=== PATIENT | female | born 1955 | race Caucasian/White ===

== ENCOUNTER 2019-05-05 22:14 | Inpatient (IN) | payer MEDICAID ==
[~2019-05-05] VITALS: Ht 180.3 cm; Wt 129.3 kg
[~2019-05-05 22:14] MED LIST: DEPAKENE250 MG PO; GLUCOPHAGE XR500 M1 PO; LEXAPRO20 MG PO; PRILOSEC 20 MG20 MG PO; REQUIP XL2 MG PO; SYNTHROID200 MCG PO
[2019-05-05 22:16] VITALS: BP 117/65
[2019-05-05] MEDS ORDERED: ACETAMINOPHEN PO ×2 (22:31→22:33)
[2019-05-05] MEDS ORDERED: REPLESTA50000 UNIT PO (22:34)
[2019-05-05] MEDS ORDERED: DRIZALMA SPRINK60 MG PO (22:34)
[2019-05-05] MEDS ORDERED: DEPAKOTE250 MG PO (22:34)
[2019-05-05] MEDS ORDERED: NEURONTIN300 MG PO (22:35)
[2019-05-05] MEDS ORDERED: GVOKE SYRI1 MG/0.2 M SUBQ (22:36)
[2019-05-05] MEDS ORDERED: GLYBURIDE 5 MG T5 M1 PO (22:37)
[2019-05-05] MEDS ORDERED: IBU400 MG PO (22:38)
[2019-05-05] MEDS ORDERED: HUMALOG100 UNIT/1 SUBQ (22:40)
[2019-05-05] MEDS ORDERED: LANTUS SUBQ (22:41)
[2019-05-05] MEDS ORDERED: LEVO-T100 MCG PO (22:42)
[2019-05-05] MEDS ORDERED: LOPERAMIDE2 MG PO (22:42)
[2019-05-05] MEDS ORDERED: MELOXICAM15 MG PO (22:43)
[2019-05-05] MEDS ORDERED: TAMIFLU75 MG PO (22:45)
[2019-05-05] MEDS ORDERED: OXYBUTYNIN 5 MG5 M2 PO (22:45)
[2019-05-05] MEDS ORDERED: FLOMAX0.4 MG PO (22:46)
[2019-05-05] MEDS ORDERED: TRAMADOL 50 MG50 MG PO (22:47)
[2019-05-05 22:55] LABS: ABSOLUTE BASOPHILS 0.1 thou/uL (0.0-0.2); ABSOLUTE EOSINOPHILS 0.2 thou/uL (0.0-0.7); ABSOLUTE LYMPHOCYTES 3.1 thou/uL (0.8-5.3); ABSOLUTE MONOCYTES 0.9 thou/uL (0.0-1.2); ABSOLUTE NEUTROPHILS 3.8 thou/uL (1.6-8.1); BASOPHILS 0.6 %; EOSINOPHILS 2.7 %; HEMATOCRIT 33.9 % (37.0-47.0); HEMOGLOBIN 11.2 gm/dL (12.0-15.0); LYMPHOCYTES 38.9 %; MCH 28.6 pg (26.0-34.0); MCV 86.6 fL (80.0-100.0); MONOCYTES 10.6 %; MPV 7.9 fl. (7.2-11.1); NUCLEATED RBCS 0 /100WBC; PLATELET COUNT* 317 thou/uL (150-400); POLYS 47.2 %; RBC 3.92 mil/uL (4.20-5.00); RDW-CV 16.1 % (10.5-14.5); WBC 8.1 thou/uL (4.0-11.0)
[2019-05-05 23:00] LABS: CALCIUM 8.3 mg/dL (8.5-10.1); CREATININE 1.3 mg/dL (0.6-1.3)
[2019-05-05 23:03] LABS: PROTIME 10.4 Seconds (9.20-11.50)
[2019-05-05 23:11] LABS: ALBUMIN 2.6 g/dL (3.4-5.0); TOTAL BILIRUBIN 0.2 mg/dL (<0.1-1.0); TOTAL PROTEIN 6.5 g/dL (6.4-8.2)
[2019-05-06 00:39] LABS: URINE BILIRUBIN NEGATIVE (Negative); URINE BLOOD 3+ (Negative); URINE CLARITY CLOUDY; URINE COLOR YELLOW; URINE GLUCOSE-RANDOM NEGATIVE (Negative); URINE KETONES NEGATIVE (Negative); URINE PROTEIN 1+ (Negative); URINE SPECIFIC GRAVITY 1.025 (1.005-1.030); URINE UROBILINOGEN 0.2 E.U./dl (0.2-1.0)
[2019-05-06 00:42] LABS: URINE LEUKOCYTES-REFLEX 2+ (Negative); URINE NITRITE-REFLEX POSITIVE (Negative)
[2019-05-06 01:11] LABS: CASTS None Seen /LPF (None Seen); SQUAMOUS NONE SEEN /LPF (0-3); URINE WBC-REFLEX >25 Many /HPF (0-5)
[2019-05-06 01:13] LABS: BACTERIA-REFLEX >30 Many /HPF (None Seen); CRYSTALS None Seen /LPF (None Seen)
[2019-05-06 07:43] VITALS: BP 118/52
--- NOTE | 2019-05-06 10:46 | EKG ---
[place] [address] ELECTROCARDIOGRAM REPORT Name: NISHA LAGUNAS Room: [place] [address] ADM IN [facility].#: [id number] Admission: 05/06/19 Attend Phys: Wendy Gillis, Discharge: Date of : 53 Date of Service: 05/05/192220 Report #: [id number] THIS REPORT FOR: //name// [facility] ED Test Date: 2019-05-05 Test Time: 22:21:12 Pat Name: NISHA LAGUNAS Department: Room: [facility] Gender: F Drink Waiter: LUI : 1955 Requested By: Ifrah Loredo Order Number: [id number] MD: Bolivar Trinidad Measurements Intervals [place] Rate: 75 P: 76 KS: 183 QRS: -38 QRSD: 137 T: 39 QT: 408 QTc: 456 Interpretive Statements Sinus rhythm Right bundle branch block left anterior fasicular block No previous ECG available for comparison Electronically Signed On 05-06-2019 10:45:16 ADDICTION PROFESSIONAL by Bolivar Trinidad [email or web address] <ELECTRONICALLY SIGNED> By: Bolivar Trinidad MD, [facility] 05/06/19 1045 20 20 Bolivar Trinidad MD, [facility] /EPI
[2019-05-06 11:12] VITALS: BP 100/47
[2019-05-06 15:03] VITALS: BP 100/47
--- NOTE | 2019-05-06 15:16 | CON ---
[address] [address] CONSULTATION Name: NISHA LAGUNAS Room: [place] [address] ADM IN .R.#: [id number] Admission: 05/06/19 Attend Phys: Wendy Gillis MD Discharge: Date of : 53 Report #: [id number] THIS REPORT FOR: //name// cc: LORENA Tinsley family physician/PCP LORENA Tinsley family physician/PCP ~ THIS REPORT FOR: //name// CC: LORENA physician/PCP Wendy Gillis DATE OF SERVICE: 05/06/2019 CARDIOLOGY CONSULTATION HISTORY OF PRESENT ILLNESS: The patient is a 64-year-old single white female who I was asked to see in the Emergency Room today after she complained of chest pain. The history is obtained from the patient. There are no old records or family members available. The patient has been in a fci for 4 years because of frequent falls. She uses a walker. She is also overweight, being 5 feet 10 inches, 260 pounds. She was doing well until yesterday, she noticed a sharp pain in her chest, went down her left arm. It tended to come and go. She has been coughing for 2 weeks. She denied any associated nausea, diaphoresis. She has had no increased shortness of breath, peripheral edema. Denied any palpitation or syncope. She came to the Emergency Room yesterday and was admitted for further evaluation and treatment. PAST MEDICAL HISTORY: She has had cholecystectomy, hiatal hernia repair, hysterectomy, knee surgery, both hips replaced. She has a history of diabetes. MEDICATIONS: At the fci consist of the following: She is on insulin, metformin, oxybutynin for incontinence. ALLERGIES: SHE HAS AN ALLERGY TO SULFA DRUGS. FAMILY HISTORY: Her sister had a heart attack. SOCIAL HISTORY: , lives in a fci. She used to work as a JUNIOR MARKETING ASSOCIATE. No smoking or alcohol abuse. REVIEW OF SYSTEMS: No history of stroke, asthma, GI bleeding, liver disease. She has had kidney stones. No cancer. She has a history of depression, saw a psychiatrist. PHYSICAL EXAMINATION: GENERAL: Revealed a large middle-aged female lying in bed. [place] [address] CONSULTATION Name: NISHA LAGUNAS Room: [address] IN [facility]#: [id number] Admission: 05/06/19 Attend Phys: Wendy Gillis MD Discharge: Date of : 53 Report #: [id number] VITAL SIGNS: She had a blood pressure of 120/60, pulse 70. She is afebrile. HEENT: She was anicteric. Conjunctivae pink. Mucous membranes are moist. NECK: Veins are nondistended. CHEST: Clear to auscultation. CARDIOVASCULAR: Regular rate and rhythm, no rub or murmur. ABDOMEN: Obese. EXTREMITIES: Had no pitting edema. SKIN: Warm and dry. NEUROLOGIC: Nonfocal. Her workup so far in the Emergency Room last night included an ECG that showed a sinus rhythm, left axis deviation and a right bundle branch block. Her x-rays; she had a portable chest x-ray that showed normal heart size, clear lung keating. CT scan of the chest using a PE protocol showed no evidence of aortic dissection, no pulmonary embolus, mild atelectasis, previous hiatal hernia surgery. LABORATORY DATA: Sodium 145, BUN 20, creatinine 1.3. Liver function studies were normal. Troponins all 0.06. BNP 109. White blood cell count 8.1, hemoglobin 11.2. IMPRESSION AND RECOMMENDATIONS: 1. Chest pain. Suspect pleuritic from her bronchitis. Recommend no further cardiac evaluation. 2. Diabetes. 3. Obesity. 4. Incontinence. 5. History of frequent falls. <ELECTRONICALLY SIGNED> By: Bolivar Trinidad MD, [facility] 05/06/19 1516 1000 [id number] Trinidad MD, FACC /nt
[2019-05-06 15:58] VITALS: BP 112/59
--- NOTE | 2019-05-06 17:17 | 2DMMODE ---
[place] [address] 2 D/M-MODE ECHOCARDIOGRAM Name: NISHA LAGUNAS Room: [address] ADM IN [facility].#: [id number] Admission: 05/06/19 Attend Phys: Wendy Gillis, Discharge: Date of : 53 Date of Service: 05/06/19 1716 Report #: [id number] THIS REPORT FOR: cc: FAM - No family physician/PCP FAM - No family physician/PCP Bolivar Trinidad MD [facility] ~ APPROVED REPORT Study performed: 05/06/2019 15:19:51 EXAM: Comprehensive 2D, Doppler, and color-flow Echocardiogram Patient Location: In-Patient Room #: [facility] BSA: 2.43 HR: 99 bpm BP: 100/47 mmHg Other Information Study Quality: Fair Technically limited study due to inability to position patient. Indications Chest Pain 2D Dimensions IVSd: 12.62 (7-11mm) LVOT Diam: 20.36 (18-24mm) LVDd: 39.09 mm PWd: 12.24 (7-11mm) Ascending Ao: 30.81 (22-36mm) LVDs: 28.49 (25-40mm) Aortic Root: 24.21 mm Volumes Left Atrial Volume (Systole) LA ESV Index: 12.00 mL/m2 Aortic Valve AoV Peak Walter.: 0.92 m/s AO Peak Gr.: 3.36 mmHg LVOT Max P.54 mmHg AO Mean Gr.: 2.06 mmHg LVOT Mean P.20 mmHg LVOT Max V: 0.80 m/s AO V2 VTI: 16.07 cm LVOT Mean V: 0.50 m/s AKBAR (VTI): 3.02 cm2 LVOT V1 VTI: 14.93 [place] [address] 2 D/M-MODE ECHOCARDIOGRAM Name: NISHA LAGUNAS Room: [address] IN .R.#: [id number] Admission: 05/06/19 Attend Phys: Wendy Gillis, Discharge: Date of : 53 Date of Service: 05/06/19 1716 Report #: [id number] Mitral Valve E/A Ratio: 0.65 MV Decel. Time: 155.40 ms MV E Max Walter.: 0.55 m/s MV PHT: 45.06 ms MVA (PHT): 4.88 cm2 TDI E/Lateral E': 6.88 E/Medial E': 5.00 Medial E' Walter.: 0.11 m/s Lateral E' Walter.: 0.08 m/s Pulmonary Valve PV Peak Walter.: 0.85 m/s PV Peak Gr.: 2.91 mmHg Left Ventricle The left ventricle is normal size. There is normal LV segmental wall motion. Mild concentric left ventricular hypertrophy. Left ventricular systolic function is normal. The left ventricular ejection fraction is within the normal range. LVEF is 55-60%. Grade I - abnormal relaxation pattern. Right Ventricle The right ventricle is normal size. The right ventricular systolic function is normal. Atria The left atrium size is normal. The right atrium size is normal. Aortic Valve The Aortic valve is sclerotic. No aortic regurgitation is present. There is no aortic valvular stenosis. Mitral Valve The mitral valve is normal in structure. There is no mitral valve regurgitation noted. No evidence of mitral valve stenosis. Tricuspid Valve Tricuspid valve is not well visualized. There is no tricuspid valve regurgitation noted. Pulmonic Valve Pulmonic valve is not well visualized. There is no pulmonic [place] [address] 2 D/M-MODE ECHOCARDIOGRAM Name: NISHA LAGUNAS Room: [address] IN [facility]#: [id number] Admission: 05/06/19 Attend Phys: Wendy Gillis, Discharge: Date of : 53 Date of Service: 05/06/19 1716 Report #: [id number] Great Vessels The aortic root is normal in size. IVC is not well visualized. Pericardium There is no pericardial effusion. <Conclusion> Mild concentric left ventricular hypertrophy. LVEF is 55-60%. The Aortic valve is sclerotic. <ELECTRONICALLY SIGNED> By: Bolivar Trinidad MD, FAC 05/06/191715 15 15 Bolivar Trinidad MD, FAC /INF
[2019-05-06 20:30] VITALS: BP 131/64
[2019-05-07 00:16] VITALS: BP 118/52
[2019-05-07 04:00] VITALS: BP 105/55
[2019-05-07 05:05] LABS: ABSOLUTE BASOPHILS 0.1 thou/uL (0.0-0.2); ABSOLUTE EOSINOPHILS 0.3 thou/uL (0.0-0.7); ABSOLUTE LYMPHOCYTES 2.6 thou/uL (0.8-5.3); ABSOLUTE MONOCYTES 0.9 thou/uL (0.0-1.2); ABSOLUTE NEUTROPHILS 3.8 thou/uL (1.6-8.1); EOSINOPHILS 3.6 %; HEMOGLOBIN 10.9 gm/dL (12.0-15.0); LYMPHOCYTES 33.7 %; MCH 28.5 pg (26.0-34.0); MCV 86.5 fL (80.0-100.0); MONOCYTES 12.1 %; MPV 8.3 fl. (7.2-11.1); NUCLEATED RBCS 0 /100WBC; PLATELET COUNT* 306 thou/uL (150-400); POLYS 49.6 %; RBC 3.82 mil/uL (4.20-5.00); RDW-CV 15.8 % (10.5-14.5); WBC 7.7 thou/uL (4.0-11.0)
[2019-05-07 05:14] LABS: ANION GAP 8 mmol/L (7-16); BUN 17 mg/dL (7-18); CALCIUM 8.7 mg/dL (8.5-10.1); CHLORIDE 107 mmol/L (98-107); CHOLESTEROL 113 mg/dL (<200); CO2 28 mmol/L (21-32); CREATININE 1.2 mg/dL (0.6-1.3); GLUCOSE 131 mg/dL (70-99); HDL CHOLESTEROL 31 mg/dL (>40); LDL CHOLESTEROL 60 mg/dL (<100); SODIUM 143 mmol/L (136-145); TC:HDL 3.6 Ratio (Not establshd); TRIGLYCERIDE 114 mg/dL (<150); VLDL 23 mg/dL (<40)
[2019-05-07 05:19] LABS: SERUM ASSESSMENT CLEAR
[2019-05-07 07:59] VITALS: BP 106/45
[2019-05-07] MEDS ORDERED: PROTONIX40 M1 PO (10:07)
[2019-05-07 11:41] VITALS: BP 106/45
[2019-05-07 12:00] VITALS: BP 121/49
== END 2019-05-07 14:30 | DRG 392 ==
LOC: M.ERS 22:14 → M.2W 05-06 02:12 → M.TBA-ER 05-06 02:12 → M.2W 05-06 15:43
PROVIDERS: Emergency Medicine; Internal Medicine; ADMIT Internal Medicine
DX: K21.0 Gastro-esophageal reflux disease with esophagitis (principal); N30.01 Acute cystitis with hematuria; Z87.440 Personal history of urinary (tract) infections; M19.90 Unspecified osteoarthritis, unspecified site; E11.40 Type 2 diabetes mellitus with diabetic neuropathy, unspecified; E03.9 Hypothyroidism, unspecified; Z96.643 Presence of artificial hip joint, bilateral; E66.9 Obesity, unspecified; R29.6 Repeated falls; R32 Unspecified urinary incontinence; F41.9 Anxiety disorder, unspecified; F32.9 Major depressive disorder, single episode, unspecified; Z85.72 Personal history of non-Hodgkin lymphomas; Z79.899 Other long term (current) drug therapy; Z79.4 Long term (current) use of insulin; Z88.2 Allergy status to sulfonamides; Z88.8 Allergy status to other drugs, medicaments and biological substances; Z90.49 Acquired absence of other specified parts of digestive tract; Z90.710 Acquired absence of both cervix and uterus; Z63.5 Disruption of family by separation and divorce; Z82.49 Family history of ischemic heart disease and other diseases of the circulatory system; Z68.39 Body mass index [BMI] 39.0-39.9, adult

== ENCOUNTER 2019-06-19 10:15 | Inpatient (IN) | payer MEDICAID ==
[~2019-06-19] VITALS: Ht 180.3 cm; Wt 127.0 kg
[~2019-06-19 10:15] MED LIST changes: +ACETAMINOPHEN PO; +DEPAKOTE250 MG PO; +DRIZALMA SPRINK60 MG PO; +FLOMAX0.4 MG PO; +GLYBURIDE 5 MG T5 M1 PO; +GVOKE SYRI1 MG/0.2 M SUBQ; +HUMALOG100 UNIT/1 SUBQ; +IBU400 MG PO; +LANTUS SUBQ; +LEVO-T100 MCG PO; +LOPERAMIDE2 MG PO; +MELOXICAM15 MG PO; +NEURONTIN300 MG PO; +OXYBUTYNIN 5 MG5 M2 PO; +PROTONIX40 M1 PO; +REPLESTA50000 UNIT PO; +TAMIFLU75 MG PO; +TRAMADOL 50 MG50 MG PO; +TYLENOL325 MG PO
[2019-06-19 10:20] VITALS: BP 137/78
[2019-06-19] MEDS ORDERED: FLONASE 0.05%50 MCG NARES (10:56)
[2019-06-19] MEDS ORDERED: ZINC SULFATE220 MG PO (10:58)
[2019-06-19] MEDS ORDERED: VOLTAREN GEL 1100 G1 TOP (10:58)
[2019-06-19] MEDS ORDERED: VITCB500GO PO (10:58)
[2019-06-19] MEDS ORDERED: ZOFRAN4 MG PO (10:59)
[2019-06-19 11:00] LABS: URINE BILIRUBIN NEGATIVE (Negative); URINE BLOOD 2+ (Negative); URINE CLARITY SL CLOUDY; URINE COLOR YELLOW; URINE GLUCOSE-RANDOM NEGATIVE (Negative); URINE KETONES NEGATIVE (Negative); URINE PROTEIN 1+ (Negative); URINE UROBILINOGEN 0.2 E.U./dl (0.2-1.0)
[2019-06-19 11:03] LABS: ABSOLUTE EOSINOPHILS 0.1 thou/uL (0.0-0.7); ABSOLUTE MONOCYTES 0.8 thou/uL (0.0-1.2); BASOPHILS 0.4 %; EOSINOPHILS 1.4 %; HEMATOCRIT 36.5 % (37.0-47.0); HEMOGLOBIN 12.2 gm/dL (12.0-15.0); LYMPHOCYTES 22.5 %; MCH 28.4 pg (26.0-34.0); MCHC 33.4 g/dL (28.0-37.0); MCV 84.9 fL (80.0-100.0); MONOCYTES 9.3 %; MPV 8.5 fl. (7.2-11.1); NUCLEATED RBCS 0 /100WBC; PLATELET COUNT* 450 thou/uL (150-400); POLYS 66.4 %
[2019-06-19 11:04] LABS: URINE LEUKOCYTES-REFLEX 2+ (Negative); URINE NITRITE-REFLEX POSITIVE (Negative)
[2019-06-19 11:06] LABS: SQUAMOUS 4-10 Moderate /LPF (0-3); URINE RBC >20 Many /HPF (0-2); URINE WBC-REFLEX >25 Many /HPF (0-5); WBC CLUMPS Moderate (None Seen)
[2019-06-19 11:07] LABS: BACTERIA-REFLEX >30 Many /HPF (None Seen); CASTS None Seen /LPF (None Seen); CRYSTALS None Seen /LPF (None Seen); MUCUS 0-3 Light strn/LPF (None Seen)
[2019-06-19 11:09] LABS: CALCIUM 8.8 mg/dL (8.5-10.1); CREATININE 1.3 mg/dL (0.6-1.3); POTASSIUM 3.7 mmol/L (3.5-5.1)
[2019-06-19 11:20] LABS: ALBUMIN 2.4 g/dL (3.4-5.0); TOTAL BILIRUBIN 0.6 mg/dL (<0.1-1.0); TOTAL PROTEIN 7.7 g/dL (6.4-8.2)
[2019-06-19 12:50] VITALS: BP 101/61
--- NOTE | 2019-06-19 13:00 | NUR ---
PT ARRIVED TO UNIT VIA CART. PT IN ENHANCED PRECAUTIONS FOR COVID-19. PT ORIENTED TO ROOM,CALL LIGHT WITHIN REACH. BED ALARM ON. PT NSR ON MONITOR
--- NOTE | 2019-06-19 17:01 | EKG ---
[place] [address] ELECTROCARDIOGRAM REPORT Name: NISHA LAGUNAS Room: [address] ADM IN .R.#: [id number] Admission: 06/19/19 Attend Phys: Wendy Gillis, Discharge: Date of : 53 Date of Service: 06/19/19 1023 Report #: [id number] THIS REPORT FOR: //name// [facility] ED Test Date: 2019-06-19 Test Time: 10:23:30 Pat Name: NISHA LAGUNAS Department: Room: [facility] Gender: F Returned Telephone Equipment Appraiser: KF : 1955 Requested By: Amanda Samuel Order Number: [id number] MD: Bolivar Trinidad Measurements Intervals [place] Rate: 83 P: 51 AR: 176 QRS: -55 QRSD: 140 T: -10 QT: 404 QTc: 475 Interpretive Statements Sinus rhythm RBBB and LAFB Baseline wander in lead(s) V1,V2 Compared to ECG 05/05/2019 22:21:12 no change Electronically Signed On 06-19-2019 16:59:49 CDT by Bolivar Trinidad [email or web address] <ELECTRONICALLY SIGNED> By: Bolivar Trinidad MD, FACC 06/19/19 1659 1023 1023 Bolivar Trinidad MD, FAC /EPI
[2019-06-19 17:02] VITALS: BP 109/61
--- NOTE | 2019-06-19 18:24 | NUR ---
PT RESTING IN BED THROUGHOUT SHIFT. PT REPOSITIONS SELF WELL. PT UP TO BSC BUT INCONTINENT. IVF INFUSING. DENIES COUGH,AFEBRILE. HOURLY ROUNDING DONE WHEN PT NEEDS MEDS,ASSIST OR CALLS OUT TO MINIMIZE STAFF EXPOSURE TO COVID AND CONSERVE PPE. PT EDUCATED ON CLUSTERING CARE
[2019-06-19 21:16] VITALS: BP 94/53
[2019-06-19 23:30] VITALS: BP 110/57
[2019-06-20 03:06] VITALS: BP 117/64
[2019-06-20 04:27] LABS: HEMATOCRIT 34.7 % (37.0-47.0); HEMOGLOBIN 11.5 gm/dL (12.0-15.0); MCH 28.3 pg (26.0-34.0); MCHC 33.2 g/dL (28.0-37.0); MCV 85.3 fL (80.0-100.0); MPV 8.2 fl. (7.2-11.1); RBC 4.07 mil/uL (4.20-5.00); RDW-CV 17.2 % (10.5-14.5); WBC 9.2 thou/uL (4.0-11.0)
[2019-06-20 05:36] LABS: POTASSIUM 4.2 mmol/L (3.5-5.1)
[2019-06-20 05:37] LABS: CALCIUM 8.7 mg/dL (8.5-10.1); MAGNESIUM 1.8 mg/dL (1.8-2.4)
--- NOTE | 2019-06-20 05:50 | NUR ---
ASSUMED CARE OF PT 06/19/19 AT APPROX 1930, PT A&OX4, ON ROOM AIR, VSS, ISOLATION PRECAUTIONS MAINTAINED, PT SINUS RYTHUM WITH BBB ON MONITOR. ASSESSMENTS AND HOURLY ROUNDINGS COMPLETE. WILL CONTINUE TO MONITOR.
[2019-06-20 08:30] VITALS: BP 136/60
[2019-06-20 12:35] VITALS: BP 138/67
--- NOTE | 2019-06-20 14:53 | CON ---
[address] [address] CONSULTATION Name: NISHA LAGUNAS Room: [address] ADM IN [place].#: [id number] Admission: 06/19/19 Attend Phys: Wendy Gillis MD Discharge: Date of : 53 Report #: [id number] THIS REPORT FOR: //name// cc: Eric Roberts MD, Dennis R MD ~ THIS REPORT FOR: //name// CC: Eric Gillis DATE OF SERVICE: 06/20/2019 INFECTIOUS DISEASE CONSULTATION ATTENDING PHYSICIAN: Dr. Gillis. REASON FOR EVALUATION: COVID-19 infection, likely has a complicated urinary tract infection as well as does have now positive blood culture with Gram-positive cocci. She was admitted through the Emergency Room on 06/19/2019 with complaints of weakness as a primary issue. She notes she has had multiple falls and that is in part why She is in the jail. It is not clear that she has had significant fevers. She has intermittent nonproductive cough. She does experience some periods of dyspnea as well. She has had some incontinence of urine and stool. Denies significant pain. She is not encephalopathic, does admit to anorexia. Her evaluation based on previous positive COVID-19 test does have a normal lymphocyte count of 2000. Urinalysis did show greater than 25 white cells, greater than 30 bacteria. Lactic acid was 1.8 and a normal AST of 26. CRP elevated at 183.3. Chest x-ray, patchy bilateral pulmonary infiltrates and now blood culture with Gram-positive cocci 1 out of 2. Urine culture with growth of greater than 10 to the 5th E. coli. She is just currently supported with no oxygen. She has been started on therapy with hydroxychloroquine and vancomycin, azithromycin and ceftriaxone. ALLERGIES: DESCRIBED SULFA, CAUSES TONGUE SWELLING. CURRENT MEDICATIONS: Include vancomycin, tamsulosin, duloxetine, divalproex, citalopram, famotidine, ceftriaxone, pantoprazole, levothyroxine, ascorbic acid, oxybutynin, glyburide, enoxaparin, glycogen, diclofenac, metformin, tramadol, azithromycin, hydroxychloroquine per protocol. PAST MEDICAL HISTORY: History of diabetes mellitus type 2, has got some peripheral neuropathy. Dysthymic disorder, hypothyroidism, urinary incontinence, osteoarthritis, history of seizures, non-Hodgkin's lymphoma, and gastric ulcers. SOCIAL HISTORY: Nonsmoker, no ethanol, [place] [address] CONSULTATION Name: NISHA LAGUNAS Room: [address] IN [facility]#: [id number] Admission: 06/19/19 Attend Phys: Wendy Gillis MD Discharge: Date of : 53 Report #: [id number] FAMILY HISTORY: Noncontributory. REVIEW OF SYSTEMS: Otherwise, unremarkable 10-point review of systems as noted above. PHYSICAL EXAMINATION: GENERAL: She is alert, cooperative. She appears to be in kceb-ux-molvqhgk distress. She is somewhat chronically ill appearing. She is lucid. VITAL SIGNS: Temperature 98.2, pulse 80, respirations 16, blood pressure 136/60. SKIN: Warm, dry, no rashes. HEENT: Normocephalic. Extraocular muscles intact. NECK: Supple. LUNGS: Few scattered crackles, more evident at the bases. HEART: Regular. I do not appreciate a murmur. ABDOMEN: Soft, mildly distended. There are no peritoneal signs. No tenderness. RECTAL: Deferred. LABORATORY DATA: Urine culture as noted above. Escherichia coli greater than 10 to the 5th awaiting susceptibilities. Blood cultures 1 out 2 with Gram-positive cocci Most recent electrolytes; sodium 143, potassium 4.2, chloride 106, bicarbonate is 25, anion gap of 12, BUN and creatinine 13 and 1.0, glucose of 55. Estimated GFR of 56. Prealbumin 14.5. CBC, white count 9.2, H and H 11.5 34.7, platelets of 488. Chest x-ray, patchy bilateral pulmonary infiltrates, most prominent on the left side. CRP elevated at 183.3. Serial troponins have all been negative. Lactic acid 1.8. Urinalysis greater than 25 white cells, greater than 30 bacteria. ASSESSMENT: COVID-19 infection, seemingly that would account for the weakness and some of rather nonspecific signs and symptoms. At this point, she is not overtly ill. She is maintained on room air. Continue the hydroxychloroquine protocol. Additionally, I suspect due to issue of dehydration and has a complicated urinary tract infection, we will continue the Gram-negative coverage for E. coli. Ceftriaxone is reasonably likely to give a good response. We will see based on susceptibilities, if we need to change that. Positive blood culture, this is certainly potentially a false positive. He is on vancomycin for the moment. Overall, she is maintaining. We will continue to monitor expectantly. <ELECTRONICALLY SIGNED> By: Destin Ramírez MD 06/20/19 1453 1029 1223Jojoshua Ramírez MD /nt
[2019-06-20 15:49] VITALS: BP 126/69
--- NOTE | 2019-06-20 17:21 | NUR ---
PATIENT RESTING IN BED. PATIENT IS UP WITH ASSIST OF 1 WITH GAIT BELT. PATIENT WORKED WITH PHYSICAL THERAPY THIS AFTERNOON. PATIENT TACHYCARDIC WITH EXERTION, CONTINUES TO BE ON ROOM AIR. PATIENT DENIES ANY PAIN AND HAS BEEN AFEBRILE. PATIENT HAS FAIR APPETITE, NO NAUSEA. NO IV STARTED DUE TO OCCLUSION ISSUES. PATIENT DENIES ANY NEEDS AT THIS TIME. CALL LIGHT WITHIN REACH.
[2019-06-20 20:15] VITALS: BP 129/62
[2019-06-20 23:56] VITALS: BP 121/76
[2019-06-21 04:00] VITALS: BP 143/62
--- NOTE | 2019-06-21 05:35 | NUR ---
PT SLEPT MOST OF SHIFT. ASSESSMENT DOCUMENTED. MEDS GIVEN PER E-MAY. IV PATENT, FLUIDS INFUSING. NO REPORTS OF PAIN. PT INCONTINENT OF BOWEL AND BLADDER THIS SHIFT. PT HAVING WATERY DIARRHEA ALL SHIFT. PT NOTIFIED OF NEEDING STOOL SAMPLE, UNABLE TO OBTAIN THIS SHIFT D/T INCONTINENCE. WILL CONTINUE WITH PLAN OF CARE.
--- NOTE | 2019-06-21 07:10 | NUR ---
CHANGE OF SHIFT REPORT GIVEN PATIENT SEEN AT BEDSIDE, IN BED WATCHING TV ASSUMED PATIENT CARE
[2019-06-21 08:00] VITALS: BP 136/62
[2019-06-21 12:00] VITALS: BP 129/65
[2019-06-21 20:59] VITALS: BP 128/62
[2019-06-21 23:53] VITALS: BP 141/82
[2019-06-22 04:00] VITALS: BP 142/74
[2019-06-22 04:47] LABS: HEMATOCRIT 33.1 % (37.0-47.0); MCHC 33.2 g/dL (28.0-37.0); MCV 84.6 fL (80.0-100.0); MPV 7.5 fl. (7.2-11.1); RBC 3.91 mil/uL (4.20-5.00); RDW-CV 16.9 % (10.5-14.5); WBC 5.8 thou/uL (4.0-11.0)
--- NOTE | 2019-06-22 05:00 | NUR ---
ASSUMED CARE OF PT 06/21/19 AT APPROX 1915. PT A&OX4, ON ROOM AIR, VSS, SR WITH BBB ON MONITOR. NO COMPLAINTS THIS SHIFT. ASSESSMENTS AND HOURLY ROUNDINGS COMPLETE. WILL CONTINUE TO MONITOR.
[2019-06-22 05:07] LABS: ALBUMIN 2.1 g/dL (3.4-5.0); CREATININE 1.1 mg/dL (0.6-1.3); MAGNESIUM 1.4 mg/dL (1.8-2.4); POTASSIUM 3.2 mmol/L (3.5-5.1); TOTAL BILIRUBIN 0.4 mg/dL (<0.1-1.0); TOTAL PROTEIN 6.4 g/dL (6.4-8.2)
[2019-06-22 09:20] VITALS: BP 147/71
[2019-06-22 12:00] VITALS: BP 129/78
[2019-06-22 16:00] VITALS: BP 130/63
--- NOTE | 2019-06-22 16:06 | NUR ---
SW called and spoke with Kirti in admissions from [facility] who confirmed pt lives in LTC there and that they will accept back whenever pt is ready to dc. SW confirmed that since pt was already able to be in isolation/quarantine prior to admitting to the hospital, they are able to accept back to their facility without the need of 2 negative covid test results. SW to continue to follow to assist with safe dc planning.
--- NOTE | 2019-06-22 19:00 | NUR ---
PATIENT PLEASANT AND COOPERATIVE THRU SHIFT. INCONTI STOOL. STOOL SAMPLE SENT TO LAB FOR CDIFF TESTING. IV SITE NOTED WNL. TELE NOTED. USING FWW TO BSC. PATIENT STATES COUGH, NO PROD. ISO PRECAUTIONS MAINTAINED. ~TJRN
[2019-06-22 19:42] VITALS: BP 128/68
[2019-06-23] VITALS: BP 115/65
[2019-06-23 04:00] VITALS: BP 126/63
[2019-06-23 06:58] LABS: HEMATOCRIT 33.7 % (37.0-47.0); HEMOGLOBIN 11.1 gm/dL (12.0-15.0); MCH 28.5 pg (26.0-34.0); MCHC 33.1 g/dL (28.0-37.0); MCV 86.1 fL (80.0-100.0); MPV 7.6 fl. (7.2-11.1); RBC 3.91 mil/uL (4.20-5.00); RDW-CV 17.1 % (10.5-14.5); WBC 5.9 thou/uL (4.0-11.0)
[2019-06-23 07:06] LABS: CALCIUM 8.8 mg/dL (8.5-10.1); CREATININE 1.1 mg/dL (0.6-1.3); MAGNESIUM 1.8 mg/dL (1.8-2.4); POTASSIUM 4.1 mmol/L (3.5-5.1)
--- NOTE | 2019-06-23 07:16 | NUR ---
ASSUMED PT'S CARE @ 0100. PT ALERT AND ORIENTED. PT ON STB ASSIST. FALL PRECAUTION IN PLACE. PT VOICED SLEEPING WELL LAST NIGHT. CALL LIGHT WITHIN REACH. WILL CONTINUE TO MONITOR.
[2019-06-23 08:10] VITALS: BP 108/63
[2019-06-23 11:35] VITALS: BP 154/84
[2019-06-23 16:41] VITALS: BP 115/59
--- NOTE | 2019-06-23 16:55 | NUR ---
PT REMAINED ALERT AND ORIENTED. PT WORKED WITH THERAPY. PT HAS HAD SEVERAL LOOSE BMS THIS SHIFT. C.DIFF NEGATIVE. ACCU CHECKS COMPLETED. Q4 VITALS. HOURLY ROUNDING COMPLETED. WILL CONTINUE TO MONITOR.
[2019-06-23 19:30] VITALS: BP 130/63
[2019-06-24 00:03] VITALS: BP 98/64
[2019-06-24 04:34] VITALS: BP 106/51
--- NOTE | 2019-06-24 04:38 | NUR ---
PT SLEPT WELL THIS SHIFT. MEDS GIVEN PER EMAR. TRAMADOL GIVEN FOR HENRY. LFA IV SL. Q4 VITALS. ACCU CHECK DOCUMENTED. FALL PRECAUTION IN PLACE. CALL LIGHT WITHIN REACH. HOURLY ROUNDINGS MADE. WILL CONTINUE TO MONITOR.
[2019-06-24 08:19] VITALS: BP 100/41
[2019-06-24 13:20] LABS: URINE BILIRUBIN NEGATIVE (Negative); URINE BLOOD 3+ (Negative); URINE CLARITY CLEAR; URINE COLOR YELLOW; URINE GLUCOSE-RANDOM NEGATIVE (Negative); URINE KETONES NEGATIVE (Negative); URINE LEUKOCYTES-REFLEX 2+ (Negative); URINE NITRITE-REFLEX NEGATIVE (Negative); URINE PROTEIN TRACE (Negative); URINE SPECIFIC GRAVITY >= 1.030 (1.005-1.030); URINE UROBILINOGEN 0.2 E.U./dl (0.2-1.0)
[2019-06-24 13:27] LABS: CASTS None Seen /LPF (None Seen); CRYSTALS None Seen /LPF (None Seen); MUCUS 0-3 Light strn/LPF (None Seen); SQUAMOUS 4-10 Moderate /LPF (0-3); URINE RBC >20 Many /HPF (0-2)
--- NOTE | 2019-06-24 16:02 | NUR ---
PATIENT UP AD SONIA TO BSC. BM NOTED X 2. UA SENT ORDERED AND URINE CULTURE PENDING. MIDLINE PLACED TO LEFT UPPER ARM FOR ABX AND FLUID BOLUS, IV TO LEFT FA DC'D PER PATIENT REQUEST. PATIENT STATED IT WAS HURTING WHEN ABX INFUSED THROUGH IT. PATIENT HR ELEVATED TO 151 [address] UP TO BSC. DR[address] LEÓN NOTIFIED AND ORDERS FOR BOLUS NS AND METOPROLOL. SURVEY TECHNICIAN REMAINS IN PLACE, RHYTHMS CHARTED. INSULIN GIVEN THIS AM ORDERED. PATIENT REMAINS IN COVID ISOLATION. HOPEFUL TO DISCHARGE SATURDAY.
[2019-06-24 16:36] VITALS: BP 108/53
[2019-06-24 19:50] VITALS: BP 116/65
[2019-06-25] VITALS: BP 121/65
[2019-06-25 04:00] VITALS: BP 114/55
--- NOTE | 2019-06-25 06:21 | NUR ---
BEGINNING OF SHIFT, PT VOICED HAVING AN EMESIS. NURSING DID NOT WITNESS THIS. PT REFUSED ZOFRAN. PT VOICED SLEEPING WELL AND FEELING MUCH BETTER THIS AM. SERENA MIDLINE SL. MEDS GIVEN PER EMAR. PT DENIES PAIN THIS SHIFT. CALL LIGHT WITHIN REACH. HOURLY ROUNDINGS MADE. WILL CONTINUE TO MONITOR.
[2019-06-25 09:02] VITALS: BP 109/53
[2019-06-25 12:00] VITALS: BP 120/50
[2019-06-25 17:00] VITALS: BP 100/49
--- NOTE | 2019-06-25 17:38 | NUR ---
ASSUMED CARE OF PATIENT AT APPROX 0730. ALERT AND ORIENTED X4. ASSESSMENT COMPLETED AND CHARTED. VSS ON 2 LITERS 02. NO COMPLAINTS THIS SHIFT. PATIENT UP TO BEDSIDE COMMODE TODAY. ANTIBIOTIC INFUSED ORDERED. CALL LIGHT WITHIN REACH. HOURLY ROUNDS COMPLETED. WILL CONTINUE WITH PLAN OF CARE.
[2019-06-26] VITALS: BP 110/57
[2019-06-26 04:00] VITALS: BP 115/60
--- NOTE | 2019-06-26 05:34 | NUR ---
PT SLEPT WELL OVERNIGHT. UP INDEP TO BSC TO VOID. ACCUCHECK 227, INSULIN GIVEN ORDERED,WITH SNACK. NO LABS THIS MORNING. DALJIT MIDLINE SL, ABX GIVEN ORDERED. REPEAT COVID NASAL SWAB SENT TO LAB AT . TELE SR WITH KATHI. ROOM AIR SAT 92%, O2 2L OVERNIGHT TO KEEP SATS ABOVE 90%. ABLE TO USE CALL LITE AND MAKE NEEDS KNOWN. REMAINS ON COVID ISOLATION.
[2019-06-26 10:43] VITALS: BP 108/56
[2019-06-26 16:29] VITALS: BP 114/69
--- NOTE | 2019-06-26 16:44 | NUR ---
ASSUMED CARE OF PATIENT AT APPROX 0730. ALERT AND ORIENTED X4. ASSESSMENT COMPLETED AND CHARTED. VSS ON ROOM AIR. NO COMPLAINTS THIS SHIFT. PATIENT IS UP WITH WALKER AND USING THE BATHROOM, VERY STEADY. ANTIBIOTIC INFUSED ORDERED. CALL LIGHT WITHIN REACH. HOURLY ROUNDS COMPLETED. WILL CONTINUE WITH PLAN OF CARE.
[2019-06-26 16:58] VITALS: BP 107/43
--- NOTE | 2019-06-26 17:34 | NUR ---
FAXED PROGRESS NOTES AND CLINICAL UPDATES TO [facility]. SECOND TEST OF COVID-19 PENDING. WILL FOLLOW UP WITH YAMILETH/INTAKE ON 06/29/19. PLEASE FAX DISCHARGE ORDERS AND SUMMARY TO [facility] IF PATIENT DISCHARGES OVER WEEKEND. [facility] [phone]; [phone] YAMILETH/LIAISON
[2019-06-26 20:45] VITALS: BP 109/61
[2019-06-27] VITALS: BP 116/65
[2019-06-27 04:00] VITALS: BP 124/62
--- NOTE | 2019-06-27 05:21 | NUR ---
PT A&O, ON RA AND 2L BY NC WHILE SLEEPING. MEDS GIVEN ORDERED. PT UP INDEPENDENT, USED BSC AT TIMES D/T DIARRHEA, PRN LOMOTIL GIVEN PER PT REQUEST. NO C/O PAIN, N/V. LAB CAME BACK COVID19 POSITIVE AGAIN. ISOLATION MAINTAINED. WILL CONTINUE TO MONITOR.
[2019-06-27 12:00] VITALS: BP 112/54
--- NOTE | 2019-06-27 16:59 | NUR ---
PATIENT ALERT AND ORIENTED X 4. VITAL SIGNS STABLE ON ROOM AIR. UP WITH WALKER IN ROOM. UPPER ARM MIDLINE PATENT AND SALINE LOCKED. PAIN AND NAUSEA BEING MANAGED WITH MEDICATION. ISOLATION MAINTAINED FOR COVID-19. FALL PRECAUTIONS IN PLACE AND BED ALARM ON. CALL LIGHT WITHIN REACH. NURSING WILL CONTINUE TO MONITOR.
[2019-06-27 21:30] VITALS: BP 135/59
[2019-06-28 04:00] VITALS: BP 107/52
--- NOTE | 2019-06-28 04:25 | NUR ---
PT A&O, VSS ON RA. PT ON 2L HS. DENIED PAIN. NO N/V THIS SHIFT. UP WITH WALKER TO THE BATHROOM. MEDS GIVEN ORDERED. NO OTHER CONCERNS AT THIS TIME. WILL CONTINUE TO MONITOR.
[2019-06-28 08:46] VITALS: BP 105/47
[2019-06-28 11:22] VITALS: BP 120/49
[2019-06-28 16:15] VITALS: BP 103/60
--- NOTE | 2019-06-28 17:30 | NUR ---
PT REMAINED ALERT AND ORIENTED. PT RESTING IN BED. PAIN MEDS GIVEN ORDERED. PT CLEANED SELF UP. FALL RISK PRECAUTIONS IN PLACE. HOURLY ROUNDING COMPLETED. WILL CONTINUE TO MONITOR.
[2019-06-28 21:45] VITALS: BP 116/54
[2019-06-29] VITALS: BP 114/62
[2019-06-29 04:00] VITALS: BP 104/57
--- NOTE | 2019-06-29 04:47 | NUR ---
PT A&O, VSS ON RA. 2L HS. MEDS GIVEN ORDERED. PT INCONTIENT OF BOWEL. ANTIDIARREA PILL GIVEN PER PT REQUEST. NO OTHER CONCERNS AT THIS TIME. WILL COTNINUE TO MONITOR.
[2019-06-29 08:01] VITALS: BP 123/71
[2019-06-29] MEDS ORDERED: ACIDOPHILUS1 EAC4 PO (09:51)
[2019-06-29] MEDS ORDERED: METFORMIN HCL500 M1 PO (09:51)
[2019-06-29] MEDS ORDERED: LINEZOLID600 MG PO (09:51)
[2019-06-29] MEDS ORDERED: GLYBURIDE 5 MG T5 M1 PO (09:51)
[2019-06-29] MEDS ORDERED: LOPRESSOR25 PO (09:51)
[2019-06-29] MEDS ORDERED: TRAMADOL 50 MG50 MG PO (09:51)
[2019-06-29 10:27] VITALS: BP 123/71
[2019-06-29 12:06] VITALS: BP 102/51
--- NOTE | 2019-06-29 14:01 | NUR ---
CONFIRMED WITH YAMILETH/INTAKE AT [facility] THAT THEY WOULD BE ABLE TO TAKE PATIENT TODAY, 06/29/19. LEFT MESSAGE WITH TOOTIE POLANCO (SON) AT [phone] TO CALL DCP REGARDING DISCHARGE PLANS FOR PATIENT. CALLED [facility] AT TO ARRANGE TRANSPORTATION BY NON-EMERGENCY AMBULANCE BETWEEN 14:00-16:30. MEDICAID CONFIRMATION #[id number]. CONTACTED [facility] AND NOTIFIED YAMILETH/INTAKE. THEY REQUESTED AMBULANCE ARRIVE TO [facility]. CONTACTED [facility]/RN ON NURSING UNIT REGARDING TIME OF AMBULANCE. FAXED DISCHARGE SUMMARY, PRESCRIPTION, LABS, CLINICAL UPDATES TO [facility]. CHART COPY GIVEN TO [facility]/RN ON UNIT. DCP TO FOLLOW UP TO REACH SON. [facility] [phone]; [phone]
[2019-06-29 16:04] VITALS: BP 123/71
--- NOTE | 2019-06-29 16:04 | NUR ---
PT CHART COPIED. MIDLINE REMOVED. REPORT GIVEN TO EMS AND FACILITY. EMS NOTIFIED TO GO TO FRONT ENTRANCE OF [place] [facility]. PT BELONGINGS GATHERED. FALL RISK PRECAUTIONS IN PLACE. HEART MONITORED. HOURLY ROUNDING COMPLETED. ISOLATION MAINTAINED. WILL CONTINUE TO MONITOR.
== END 2019-06-29 16:08 | DRG 177 ==
LOC: M.ERS 10:15 → M.TBA-ER 11:31 → M.ORTHSURG 11:31
PROVIDERS: Nurse Practitioner Family; ADMIT Internal Medicine
DX: U07.1 COVID-19 (principal); J96.01 Acute respiratory failure with hypoxia; J12.89 Other viral pneumonia; N39.0 Urinary tract infection, site not specified; R56.9 Unspecified convulsions; E03.9 Hypothyroidism, unspecified; E55.9 Vitamin D deficiency, unspecified; E11.40 Type 2 diabetes mellitus with diabetic neuropathy, unspecified; M19.90 Unspecified osteoarthritis, unspecified site; B96.20 Unspecified Escherichia coli [E. coli] as the cause of diseases classified elsewhere; F34.1 Dysthymic disorder; K58.0 Irritable bowel syndrome with diarrhea; Z88.2 Allergy status to sulfonamides; Z79.84 Long term (current) use of oral hypoglycemic drugs; Z79.4 Long term (current) use of insulin; Z87.11 Personal history of peptic ulcer disease; Z85.72 Personal history of non-Hodgkin lymphomas

== ENCOUNTER 2019-07-21 15:38 | Inpatient (IN) | payer MEDICAID ==
[~2019-07-21] VITALS: Ht 180.3 cm; Wt 126.6 kg
[~2019-07-21 15:38] MED LIST changes: +ACIDOPHILUS1 EAC4 PO; +FLONASE 0.05%50 MCG NARES; +LINEZOLID600 MG PO; +LOPRESSOR25 PO; +METFORMIN HCL500 M1 PO; +VITCB500GO PO; +VOLTAREN GEL 1100 G1 TOP; +ZINC SULFATE220 MG PO; +ZOFRAN4 MG PO
[2019-07-21 15:39] VITALS: BP 129/73
[2019-07-21 15:48] LABS: URINE BILIRUBIN NEGATIVE (Negative); URINE BLOOD 3+ (Negative); URINE CLARITY CLOUDY; URINE COLOR YELLOW; URINE GLUCOSE-RANDOM NEGATIVE (Negative); URINE KETONES TRACE (Negative); URINE PROTEIN 1+ (Negative); URINE UROBILINOGEN 0.2 E.U./dl (0.2-1.0)
[2019-07-21 15:51] LABS: URINE LEUKOCYTES-REFLEX 3+ (Negative); URINE NITRITE-REFLEX POSITIVE (Negative)
[2019-07-21 15:55] LABS: BACTERIA-REFLEX >30 Many /HPF (None Seen); CASTS None Seen /LPF (None Seen); CRYSTALS None Seen /LPF (None Seen); SQUAMOUS 4-10 Moderate /LPF (0-3); URINE RBC 3-10 Few /HPF (0-2); URINE WBC-REFLEX >25 Many /HPF (0-5); WBC CLUMPS Moderate (None Seen)
[2019-07-21 16:48] LABS: ABSOLUTE BASOPHILS 0.1 thou/uL (0.0-0.2); ABSOLUTE EOSINOPHILS 0.2 thou/uL (0.0-0.7); ABSOLUTE LYMPHOCYTES 2.4 thou/uL (0.8-5.3); ABSOLUTE MONOCYTES 0.9 thou/uL (0.0-1.2); ABSOLUTE NEUTROPHILS 6.5 thou/uL (1.6-8.1); BASOPHILS 0.8 %; EOSINOPHILS 1.8 %; HEMATOCRIT 39.7 % (37.0-47.0); HEMOGLOBIN 12.8 gm/dL (12.0-15.0); LYMPHOCYTES 23.7 %; MCH 28.6 pg (26.0-34.0); MCHC 32.2 g/dL (28.0-37.0); MCV 88.8 fL (80.0-100.0); MONOCYTES 8.6 %; MPV 8.4 fl. (7.2-11.1); NUCLEATED RBCS 0 /100WBC; PLATELET COUNT* 551 thou/uL (150-400); POLYS 65.1 %; RBC 4.47 mil/uL (4.20-5.00); WBC 9.9 thou/uL (4.0-11.0)
[2019-07-21 16:56] LABS: CALCIUM 8.7 mg/dL (8.5-10.1); CREATININE 1.4 mg/dL (0.6-1.3); POTASSIUM 4.3 mmol/L (3.5-5.1)
[2019-07-21 17:06] LABS: ALBUMIN 2.8 g/dL (3.4-5.0); TOTAL BILIRUBIN 0.2 mg/dL (<0.1-1.0)
[2019-07-21 19:48] VITALS: BP 135/75
[2019-07-21 22:00] VITALS: BP 167/78
[2019-07-22] VITALS: BP 122/72
[2019-07-22 04:00] VITALS: BP 126/62
[2019-07-22 04:50] LABS: HEMATOCRIT 35.7 % (37.0-47.0); HEMOGLOBIN 11.5 gm/dL (12.0-15.0); MCH 28.2 pg (26.0-34.0); MCHC 32.1 g/dL (28.0-37.0); MCV 87.9 fL (80.0-100.0); MPV 7.8 fl. (7.2-11.1); RBC 4.06 mil/uL (4.20-5.00); RDW-CV 18.7 % (10.5-14.5); WBC 12.9 thou/uL (4.0-11.0)
[2019-07-22 05:10] LABS: ALBUMIN 2.6 g/dL (3.4-5.0); MAGNESIUM 1.1 mg/dL (1.8-2.4); POTASSIUM 3.6 mmol/L (3.5-5.1); TOTAL BILIRUBIN 0.4 mg/dL (<0.1-1.0); TOTAL PROTEIN 6.4 g/dL (6.4-8.2)
[2019-07-22 08:00] VITALS: BP 90/52
[2019-07-22 12:00] VITALS: BP 112/53
[2019-07-22 16:00] VITALS: BP 108/48
--- NOTE | 2019-07-22 16:33 | EKG ---
[place] [address] ELECTROCARDIOGRAM REPORT Name: NISHA LAGUNAS Room: [address] ADM IN M.R.#: [id number] Admission: 07/21/19 Attend Phys: Wendy Gillis, Discharge: Date of : 53 Date of Service: 07/21/19 1748 Report #: [id number] THIS REPORT FOR: //name// [facility] ED Test Date: 2019-07-21 Test Time: 17:48:20 Pat Name: NISHA LAGUNAS Department: Room: [facility] Gender: F Workflow Developer: CCD : 1955 Requested By: Bud Martins Order Number: [id number] MD: Gal Kay Measurements Intervals [place] Rate: 97 P: 44 DE: 162 QRS: -67 QRSD: 159 T: 59 QT: 356 QTc: 452 Interpretive Statements Sinus rhythm Ventricular premature complex RBBB and LAFB Baseline wander in lead(s) V6 Compared to ECG 06/19/2019 10:23:30 Ventricular premature complex(es) now present Electronically Signed On 07-22-2019 16:31:59 CDT by Gal Kay [email or web address] <ELECTRONICALLY SIGNED> By: Gal Kay MD, FACC 07/22/19 1631 1748 1748 Gal Kay MD, FAC /EPI
[2019-07-22 19:45] VITALS: BP 100/50
[2019-07-23] VITALS (7 sets, daily range): BP systolic 95–118; BP diastolic 42–68
[2019-07-23 02:07] LABS: GLYCOHEMOGLOBIN (HGB A1C) 7.1 % (4.8-5.6)
[2019-07-23 04:24] LABS: HEMATOCRIT 31.3 % (37.0-47.0); HEMOGLOBIN 10.2 gm/dL (12.0-15.0); MCHC 32.7 g/dL (28.0-37.0); MCV 88.8 fL (80.0-100.0); MPV 8.3 fl. (7.2-11.1); RBC 3.53 mil/uL (4.20-5.00); RDW-CV 18.4 % (10.5-14.5); WBC 5.6 thou/uL (4.0-11.0)
[2019-07-23 04:33] LABS: ALBUMIN 2.2 g/dL (3.4-5.0); CREATININE 1.2 mg/dL (0.6-1.3); MAGNESIUM 1.5 mg/dL (1.8-2.4); POTASSIUM 3.8 mmol/L (3.5-5.1); TOTAL BILIRUBIN 0.2 mg/dL (<0.1-1.0); TOTAL PROTEIN 5.6 g/dL (6.4-8.2)
--- NOTE | 2019-07-23 12:28 | CON ---
[address] [address] CONSULTATION Name: NISHA LAGUNAS Room: [address] ADM IN M.R.#: [id number] Admission: 07/21/19 Attend Phys: Wendy Gillis MD Discharge: Date of : 53 Report #: [id number] THIS REPORT FOR: //name// cc: Eric Roberts MD, Dennis R MD ~ THIS REPORT FOR: //name// CC: Eric Gillis DATE OF SERVICE: 07/22/2019 INFECTIOUS DISEASE CONSULTATION ATTENDING PHYSICIAN: Wendy Gillis MD REASON FOR EVALUATION: Complicated urinary tract infection, is a recurrence. HISTORY OF PRESENT ILLNESS: Chart reviewed, the patient examined. This is a 64-year-old familiar with, who was admitted in June of this year, was confirmed to have COVID-19 infection, also throughout the fairly lengthy course of the hospitalization was diagnosed with urinary tract infection. Initial culture had growth of Escherichia coli that was noted to be extended-spectrum beta-lactamase producing repeat cultures. Several days later, had growth of vancomycin-resistant Enterococcus faecium; had been treated both times. She was discharged on 06/29/2019 and she completed a prescribed course of antibiotics. She notes had ongoing issues with lower abdominal pain and discomfort. Had more recently experienced primary dysuria, burning with her urination. Due to concern about additional UTI, she was sent to the Emergency Room. Urinalysis did show marked pyuria. Noted to have some low-grade temperature elevation. She has had some diminished appetite. Denies significant pulmonary-related complaints, although she is generally weak I think from her prolonged hospitalization. She is lucid. She was started empirically on ceftriaxone and linezolid. Of note, initial labs showed marked elevation of her lactic acid of 5.8. This has been repeated and was down to 2.8. Blood cultures are sterile thus far. Urine culture in progress. ALLERGIES: LISTED TO BACTRIM, WHICH CAUSES TONGUE SWELLING. CURRENT MEDICINES: Include metformin, divalproex, ceftriaxone, lactobacillus, levothyroxine, diclofenac, enoxaparin, glyburide, metoprolol, ascorbic acid, pantoprazole, tamsulosin, oxybutynin, insulin, duloxetine, cholecalciferol, citalopram, linezolid, tramadol, p.r.n. analgesics and antiemetics. 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 SOCIAL HISTORY: No ethanol. Nonsmoker. No illicit drug use. FAMILY HISTORY: Noncontributory. REVIEW OF SYSTEMS: Otherwise, unremarkable 10-point review of system with exception of the above. PHYSICAL EXAMINATION: GENERAL: She is alert, cooperative, appropriate. She is lucid. She has mild distress. She appears somewhat undernourished, chronically ill appearing. VITAL SIGNS: Temperature 98.9 with a T-max of 99.7, pulse 96, respirations 17, blood pressure 90/52. SKIN: Warm, dry, no rashes. HEENT: Normocephalic. Extraocular muscles intact. NECK: Supple. LUNGS: Diminished breath sounds. Few scattered crackles at the bases. HEART: Regular. Borderline tachycardic. I do not appreciate murmur. ABDOMEN: Really soft, nontender, nondistended. GENITOURINARY AND RECTAL: Deferred. LABORATORY DATA: As described above. Blood cultures negative thus far. Electrolytes from this morning: Sodium 138, potassium 3.6, chloride 104, bicarb is 25, anion gap of 9, BUN and creatinine 10 and 1.0, glucose of 163. LFTs unremarkable. Albumin of 2.6. Total protein 6.4. Estimated GFR 56. Prealbumin of 18.0. CBC: White count of 12.9, H and H 11.5 and 35.7, platelets of 462. Most recent lactic acid of 2.5 that is down from 5.8. Urinalysis showed greater than 25 white cells, greater than 30 bacteria, no crystals. CT abdomen and pelvis showed some obstructive uropathy, no hydronephrosis, nonobstructing small right renal calculi. ASSESSMENT: Complicated urinary tract infection associated with early sepsis. Seemingly has responded to treatment. We will continue empiric therapy. We will adjust antimicrobial regimen based on previous culture results from June. She will continue the linezolid. We will monitor expectantly. Add incentive spirometry. Increase activity as soon as possible. <ELECTRONICALLY SIGNED> By: Destin Ramírez MD 07/23/19 1228 1205 [id number] Ramírez MD /nt
[2019-07-24 04:00] VITALS: BP 117/56
[2019-07-24 04:45] LABS: HEMATOCRIT 32.7 % (37.0-47.0); HEMOGLOBIN 10.8 gm/dL (12.0-15.0); MCH 29.3 pg (26.0-34.0); MCV 88.8 fL (80.0-100.0); MPV 8.4 fl. (7.2-11.1); RBC 3.68 mil/uL (4.20-5.00); WBC 5.2 thou/uL (4.0-11.0)
[2019-07-24 04:54] LABS: CALCIUM 8.4 mg/dL (8.5-10.1); CREATININE 1.2 mg/dL (0.6-1.3); MAGNESIUM 1.6 mg/dL (1.8-2.4); POTASSIUM 4.4 mmol/L (3.5-5.1)
[2019-07-24 08:09] VITALS: BP 114/50
[2019-07-24 11:46] VITALS: BP 123/52
[2019-07-24 16:11] VITALS: BP 110/55
[2019-07-24 19:40] VITALS: BP 98/63
[2019-07-25 00:14] VITALS: BP 88/44
[2019-07-25 04:17] VITALS: BP 99/60
[2019-07-25 08:05] VITALS: BP 109/70
[2019-07-25 11:28] VITALS: BP 109/70
[2019-07-25] MEDS ORDERED: TRAMADOL 50 MG50 MG PO (12:18)
[2019-07-25] MEDS ORDERED: NORCO 7.5-3251 EACH PO (12:18)
[2019-07-25] MEDS ORDERED: MEROPENEM-500 MG/50 IVPB (12:18)
[2019-07-25] MEDS ORDERED: OTHER MISCELL (12:25)
[2019-07-25 13:11] VITALS: BP 141/68
== END 2019-07-25 16:20 | DRG 871 ==
LOC: M.ERS 15:38 → M.2W 17:21 → M.TBA-ER 17:21 → M.2W 20:00
PROVIDERS: Family Medicine; Nurse Practitioner Family; ADMIT Internal Medicine
DX: A41.9 Sepsis, unspecified organism (principal); J15.9 Unspecified bacterial pneumonia; C85.90 Non-Hodgkin lymphoma, unspecified, unspecified site; N30.01 Acute cystitis with hematuria; N17.9 Acute kidney failure, unspecified; M19.90 Unspecified osteoarthritis, unspecified site; E03.9 Hypothyroidism, unspecified; E11.40 Type 2 diabetes mellitus with diabetic neuropathy, unspecified; F34.1 Dysthymic disorder; E11.65 Type 2 diabetes mellitus with hyperglycemia; Z87.11 Personal history of peptic ulcer disease; Z79.84 Long term (current) use of oral hypoglycemic drugs; Z79.899 Other long term (current) drug therapy

== ENCOUNTER 2019-12-19 11:52 | Inpatient (IN) | payer MEDICAID ==
[~2019-12-19] VITALS: Ht 180.3 cm; Wt 122.9 kg
[~2019-12-19 11:52] MED LIST changes: +MEROPENEM-500 MG/50 IVPB; +NORCO 7.5-3251 EACH PO; +OTHER MISCELL
[2019-12-19 11:53] VITALS: BP 141/72
[2019-12-19 13:00] LABS: URINE BILIRUBIN NEGATIVE (Negative); URINE BLOOD 2+ (Negative); URINE CLARITY CLOUDY; URINE COLOR STRAW; URINE GLUCOSE-RANDOM 3+ (Negative); URINE KETONES NEGATIVE (Negative); URINE LEUKOCYTES-REFLEX TRACE (Negative); URINE NITRITE-REFLEX NEGATIVE (Negative); URINE PROTEIN NEGATIVE (Negative); URINE SPECIFIC GRAVITY 1.025 (1.005-1.030); URINE UROBILINOGEN 0.2 E.U./dl (0.2-1.0)
[2019-12-19 13:12] LABS: SQUAMOUS 0-3 Few /LPF (0-3); URINE WBC-REFLEX >25 Many /HPF (0-5); WBC CLUMPS Many (None Seen)
[2019-12-19 13:13] LABS: BACTERIA-REFLEX >30 Many /HPF (None Seen); CASTS None Seen /LPF (None Seen); CRYSTALS None Seen /LPF (None Seen); MUCUS 0-3 Light strn/LPF (None Seen); URINE RBC 3-10 Few /HPF (0-2); YEAST-REFLEX Present (None Seen)
[2019-12-19 13:27] LABS: ABSOLUTE BASOPHILS 0.1 thou/uL (0.0-0.2); ABSOLUTE EOSINOPHILS 0.2 thou/uL (0.0-0.7); ABSOLUTE LYMPHOCYTES 2.6 thou/uL (0.8-5.3); ABSOLUTE MONOCYTES 1.2 thou/uL (0.0-1.2); ABSOLUTE NEUTROPHILS 7.1 thou/uL (1.6-8.1); BASOPHILS 1.3 %; EOSINOPHILS 1.6 %; HEMATOCRIT 40.6 % (37.0-47.0); HEMOGLOBIN 12.7 gm/dL (12.0-15.0); LYMPHOCYTES 22.9 %; MCH 27.1 pg (26.0-34.0); MCHC 31.3 g/dL (28.0-37.0); MCV 86.7 fL (80.0-100.0); MONOCYTES 10.5 %; MPV 9.3 fl. (7.2-11.1); NUCLEATED RBCS 0 /100WBC; PLATELET COUNT* 327 thou/uL (150-400); POLYS 63.7 %; RBC 4.68 mil/uL (4.20-5.00); RDW-CV 15.6 % (10.5-14.5); WBC 11.2 thou/uL (4.0-11.0)
[2019-12-19 13:46] LABS: CALCIUM 9.6 mg/dL (8.5-10.1); CREATININE 1.6 mg/dL (0.6-1.3); POTASSIUM 4.2 mmol/L (3.5-5.1)
[2019-12-19 13:47] LABS: ALBUMIN 3.4 g/dL (3.4-5.0); TOTAL BILIRUBIN 0.5 mg/dL (<0.1-1.0); TOTAL PROTEIN 8.1 g/dL (6.4-8.2)
[2019-12-19 16:45] VITALS: BP 134/79
[2019-12-19 21:50] VITALS: BP 105/53
[2019-12-20 03:44] LABS: HEMATOCRIT 36.3 % (37.0-47.0); HEMOGLOBIN 11.6 gm/dL (12.0-15.0); MCH 27.2 pg (26.0-34.0); MCV 84.9 fL (80.0-100.0); MPV 9.2 fl. (7.2-11.1); RBC 4.28 mil/uL (4.20-5.00); RDW-CV 15.4 % (10.5-14.5); WBC 7.7 thou/uL (4.0-11.0)
[2019-12-20 03:57] LABS: CALCIUM 8.5 mg/dL (8.5-10.1); CREATININE 1.3 mg/dL (0.6-1.3); POTASSIUM 3.5 mmol/L (3.5-5.1)
[2019-12-20 04:01] LABS: ALBUMIN 2.6 g/dL (3.4-5.0); MAGNESIUM 1.7 mg/dL (1.8-2.4); TOTAL BILIRUBIN 0.3 mg/dL (<0.1-1.0); TOTAL PROTEIN 6.3 g/dL (6.4-8.2)
[2019-12-20 09:30] VITALS: BP 94/54
[2019-12-20 16:09] VITALS: BP 88/42
[2019-12-20 19:30] VITALS: BP 93/45
[2019-12-21 03:05] LABS: GLYCOHEMOGLOBIN (HGB A1C) 10.9 % (4.8-5.6)
[2019-12-21 04:03] LABS: HEMATOCRIT 37.7 % (37.0-47.0); MCH 27.5 pg (26.0-34.0); MCHC 31.7 g/dL (28.0-37.0); MCV 86.6 fL (80.0-100.0); MPV 8.6 fl. (7.2-11.1); RBC 4.35 mil/uL (4.20-5.00); RDW-CV 15.6 % (10.5-14.5); WBC 6.6 thou/uL (4.0-11.0)
[2019-12-21 04:25] LABS: ALBUMIN 2.4 g/dL (3.4-5.0); CALCIUM 7.1 mg/dL (8.5-10.1); CREATININE 1.2 mg/dL (0.6-1.3); MAGNESIUM 1.6 mg/dL (1.8-2.4); POTASSIUM 3.6 mmol/L (3.5-5.1); TOTAL BILIRUBIN 0.4 mg/dL (<0.1-1.0)
[2019-12-21 08:30] VITALS: BP 119/53
[2019-12-21 16:00] VITALS: BP 100/48
[2019-12-21 20:30] VITALS: BP 94/47
[2019-12-22 04:02] LABS: HEMATOCRIT 34.9 % (37.0-47.0); HEMOGLOBIN 11.1 gm/dL (12.0-15.0); MCH 27.4 pg (26.0-34.0); MCHC 31.9 g/dL (28.0-37.0); MCV 85.9 fL (80.0-100.0); RBC 4.07 mil/uL (4.20-5.00); RDW-CV 15.6 % (10.5-14.5); WBC 4.5 thou/uL (4.0-11.0)
[2019-12-22 04:23] LABS: ALBUMIN 2.5 g/dL (3.4-5.0); CALCIUM 8.2 mg/dL (8.5-10.1); CREATININE 1.2 mg/dL (0.6-1.3); MAGNESIUM 1.9 mg/dL (1.8-2.4); POTASSIUM 3.9 mmol/L (3.5-5.1); TOTAL BILIRUBIN 0.3 mg/dL (<0.1-1.0); TOTAL PROTEIN 5.9 g/dL (6.4-8.2)
[2019-12-22 07:45] VITALS: BP 117/40
[2019-12-22 17:03] VITALS: BP 117/65
[2019-12-22 21:16] VITALS: BP 123/54
[2019-12-23 08:10] VITALS: BP 104/45
[2019-12-23 16:56] VITALS: BP 119/56
[2019-12-23 20:00] VITALS: BP 149/53
[2019-12-23 21:03] LABS: URINE BILIRUBIN NEGATIVE (Negative); URINE BLOOD TRACE (Negative); URINE CLARITY CLOUDY; URINE COLOR YELLOW; URINE GLUCOSE-RANDOM NEGATIVE (Negative); URINE KETONES NEGATIVE (Negative); URINE NITRITE-REFLEX NEGATIVE (Negative); URINE PROTEIN NEGATIVE (Negative); URINE UROBILINOGEN 0.2 E.U./dl (0.2-1.0)
[2019-12-23 21:04] LABS: URINE LEUKOCYTES-REFLEX 3+ (Negative)
[2019-12-23 21:11] LABS: SQUAMOUS >10 Many /LPF (0-3)
[2019-12-23 21:12] LABS: CASTS None Seen /LPF (None Seen); URINE WBC-REFLEX >25 Many /HPF (0-5); WBC CLUMPS Moderate (None Seen)
[2019-12-23 21:13] LABS: CRYSTALS None Seen /LPF (None Seen); MUCUS None Seen strn/LPF (None Seen); URINE RBC 3-10 Few /HPF (0-2); YEAST-REFLEX Present (None Seen)
[2019-12-24 07:50] VITALS: BP 124/60
[2019-12-24 16:00] VITALS: BP 117/55
[2019-12-24 20:25] VITALS: BP 137/69
[2019-12-25 07:50] VITALS: BP 111/55
[2019-12-25] MEDS ORDERED: ACIDOPHILUS1 EAC4 PO (10:08)
[2019-12-25] MEDS ORDERED: REGLAN 10 MG TA10 MG PO (10:08)
[2019-12-25 10:37] VITALS: BP 111/55
[2019-12-25 10:41] VITALS: BP 111/55
[2019-12-25 16:18] VITALS: BP 116/57
[2019-12-25 17:18] VITALS: BP 111/55
== END 2019-12-25 17:25 | disposition home or self-care (01) | DRG 871 ==
LOC: M.ERS 11:52 → M.TBA-ER 15:11 → M.ORTHSURG 16:45
PROVIDERS: Personal Emergency Response Attendant; ADMIT Internal Medicine; ATTEND Internal Medicine
PROC: 0DC58ZZ Extirpation of Matter from Esophagus, Via Natural or Artificial Opening Endoscopic (ICD-10-PCS; principal; 2019-12-23)
DX: A41.9 Sepsis, unspecified organism (principal); E11.00 Type 2 diabetes mellitus with hyperosmolarity without nonketotic hyperglycemic-hyperosmolar coma (NKHHC); N17.0 Acute kidney failure with tubular necrosis; N39.0 Urinary tract infection, site not specified; M19.90 Unspecified osteoarthritis, unspecified site; E03.9 Hypothyroidism, unspecified; E11.40 Type 2 diabetes mellitus with diabetic neuropathy, unspecified; E11.65 Type 2 diabetes mellitus with hyperglycemia; B96.89 Other specified bacterial agents as the cause of diseases classified elsewhere; G40.909 Epilepsy, unspecified, not intractable, without status epilepticus; R13.10 Dysphagia, unspecified; K44.9 Diaphragmatic hernia without obstruction or gangrene; Z88.2 Allergy status to sulfonamides; Z88.8 Allergy status to other drugs, medicaments and biological substances

== ENCOUNTER 2020-01-03 22:28 | Inpatient (IN) | payer MEDICAID ==
[~2020-01-03] VITALS: Ht 180.3 cm; Wt 116.7 kg
[~2020-01-03 22:28] MED LIST changes: +REGLAN 10 MG TA10 MG PO
[2020-01-03 22:43] VITALS: BP 134/70
[2020-01-03 22:47] LABS: URINE BILIRUBIN NEGATIVE (Negative); URINE BLOOD 3+ (Negative); URINE CLARITY CLOUDY; URINE COLOR YELLOW; URINE GLUCOSE-RANDOM 3+ (Negative); URINE KETONES TRACE (Negative); URINE NITRITE-REFLEX NEGATIVE (Negative); URINE PROTEIN 1+ (Negative); URINE SPECIFIC GRAVITY 1.015 (1.005-1.030); URINE UROBILINOGEN 0.2 E.U./dl (0.2-1.0)
[2020-01-03] MEDS ORDERED: PERCOCET 5-3251 EACH PO (22:47)
[2020-01-03 22:50] LABS: URINE LEUKOCYTES-REFLEX 2+ (Negative)
[2020-01-03 22:56] LABS: HEMATOCRIT 42.1 % (37.0-47.0); HEMOGLOBIN 13.5 gm/dL (12.0-15.0); MCV 84.4 fL (80.0-100.0); MPV 8.6 fl. (7.2-11.1); NUCLEATED RBCS 0 /100WBC; PLATELET COUNT* 402 thou/uL (150-400); RBC 4.99 mil/uL (4.20-5.00); RDW-CV 15.5 % (10.5-14.5)
[2020-01-03 22:56] LABS: SQUAMOUS >10 Many /LPF (0-3); URINE WBC-REFLEX >25 Many /HPF (0-5)
[2020-01-03 22:57] LABS: BACTERIA-REFLEX 1-9 Few /HPF (None Seen); CASTS None Seen /LPF (None Seen); CRYSTALS None Seen /LPF (None Seen); MUCUS None Seen strn/LPF (None Seen); WBC CLUMPS Few (None Seen)
[2020-01-03 23:04] LABS: CALCIUM 9.3 mg/dL (8.5-10.1); CREATININE 1.5 mg/dL (0.6-1.3); POTASSIUM 3.9 mmol/L (3.5-5.1)
[2020-01-03 23:09] LABS: ALBUMIN 3.3 g/dL (3.4-5.0); TOTAL BILIRUBIN 0.9 mg/dL (<0.1-1.0)
[2020-01-04] VITALS (7 sets, daily range): BP systolic 95–132; BP diastolic 38–67
[2020-01-04 00:08] LABS: ABSOLUTE LYMPHOCYTES 4.8 thou/uL (0.8-5.3); ABSOLUTE MONOCYTES 1.5 thou/uL (0.0-1.2); ABSOLUTE NEUTROPHILS 14.7 thou/uL (1.6-8.1)
[2020-01-04 00:09] LABS: PLATELET ESTIMATE ADEQUATE
[2020-01-04 09:22] LABS: CALCIUM 8.2 mg/dL (8.5-10.1); CREATININE 1.1 mg/dL (0.6-1.3); POTASSIUM 3.9 mmol/L (3.5-5.1)
[2020-01-04 09:25] LABS: MAGNESIUM 1.5 mg/dL (1.8-2.4); PHOSPHORUS* 3.2 mg/dL (2.5-4.9)
--- NOTE | 2020-01-04 17:54 | EKG ---
[place] [address] ELECTROCARDIOGRAM REPORT Name: NISHA LAGUNAS Room: [address] ADM IN .R.#: [id number] Admission: 01/03/20 Attend Phys: He Lobo, Discharge: Date of : 53 Date of Service: 01/03/20 2332 Report #: [id number] THIS REPORT FOR: //name// [facility] ED Test Date: 2020-01-03 Test Time: 23:32:35 Pat Name: NISHA LAGUNAS Department: Room: [facility] Gender: F Brush Painter: KEON : 1955 Requested By: Bud Martins Order Number: [id number] MD: Gal Kay Measurements Intervals [place] Rate: 80 P: 50 MS: 167 QRS: -51 QRSD: 137 T: 2 QT: 397 QTc: 458 Interpretive Statements Sinus rhythm RBBB and LAFB Minimal ST elevation, lateral leads Baseline wander in lead(s) II,III,aVF Compared to ECG 07/21/2019 17:48:20 ST (T wave) deviation now present Ventricular premature complex(es) no longer present Electronically Signed On 01-04-2020 17:54:44 CDT by Gal Kay [email or web address] <ELECTRONICALLY SIGNED> By: Gal Kay MD, FACC 01/04/20 1754 31 233 Gal Kay MD, FACC /EPI
[2020-01-05] VITALS: BP 103/46
[2020-01-05 04:00] VITALS: BP 94/48
[2020-01-05 04:26] LABS: CALCIUM 8.4 mg/dL (8.5-10.1); CREATININE 1.1 mg/dL (0.6-1.3); MAGNESIUM 1.5 mg/dL (1.8-2.4); POTASSIUM 4.1 mmol/L (3.5-5.1)
[2020-01-05 07:46] VITALS: BP 131/45
[2020-01-05 20:00] VITALS: BP 99/58
[2020-01-06] VITALS: BP 100/48
[2020-01-06 05:25] LABS: MCH 27.2 pg (26.0-34.0); MCHC 32.2 g/dL (28.0-37.0); MCV 84.5 fL (80.0-100.0); MPV 8.6 fl. (7.2-11.1); RBC 4.02 mil/uL (4.20-5.00); RDW-CV 15.5 % (10.5-14.5); WBC 5.4 thou/uL (4.0-11.0)
[2020-01-06 05:30] LABS: CALCIUM 8.7 mg/dL (8.5-10.1); CREATININE 1.1 mg/dL (0.6-1.3); HEMOGLOBIN 10.9 gm/dL (12.0-15.0); MAGNESIUM 1.6 mg/dL (1.8-2.4); POTASSIUM 4.3 mmol/L (3.5-5.1)
[2020-01-06 07:44] VITALS: BP 114/43
[2020-01-06 16:00] VITALS: BP 110/70
[2020-01-06 21:20] VITALS: BP 126/66
[2020-01-07] MEDS ORDERED: CEFUROXIME250 MG PO (07:50)
[2020-01-07] MEDS ORDERED: ELMIRON 100 MG100 M1 PO (07:51)
[2020-01-07 07:55] VITALS: BP 105/60
[2020-01-07 14:32] VITALS: BP 105/60
== END 2020-01-07 18:00 | disposition home health service (06) | DRG 871 ==
LOC: M.ERS 22:28 → M.TBA-ER 23:31 → M.2W 01-04 00:56 → M.ORTHSURG 01-06 05:00
PROVIDERS: Family Medicine; ADMIT Internal Medicine; ATTEND Internal Medicine
DX: A41.89 Other specified sepsis (principal); N17.0 Acute kidney failure with tubular necrosis; J18.9 Pneumonia, unspecified organism; E44.0 Moderate protein-calorie malnutrition; Z96.651 Presence of right artificial knee joint; Z96.612 Presence of left artificial shoulder joint; E11.65 Type 2 diabetes mellitus with hyperglycemia; R31.9 Hematuria, unspecified; N30.11 Interstitial cystitis (chronic) with hematuria; G89.29 Other chronic pain; E66.9 Obesity, unspecified; Z20.828 Contact with and (suspected) exposure to other viral communicable diseases; I95.2 Hypotension due to drugs; Z88.2 Allergy status to sulfonamides; Z88.8 Allergy status to other drugs, medicaments and biological substances; Z68.35 Body mass index [BMI] 35.0-35.9, adult; Z85.72 Personal history of non-Hodgkin lymphomas; Z79.899 Other long term (current) drug therapy

== ENCOUNTER 2020-01-19 22:25 | Emergency (ER) | payer MEDICAID ==
[~2020-01-19] VITALS: Ht 180.3 cm; Wt 115.7 kg
[~2020-01-19 22:25] MED LIST changes: +CEFUROXIME250 MG PO; +ELMIRON 100 MG100 M1 PO; +PERCOCET 5-3251 EACH PO
[2020-01-20 00:13] LABS: URINE BILIRUBIN NEGATIVE (Negative); URINE BLOOD 3+ (Negative); URINE CLARITY SL CLOUDY; URINE COLOR YELLOW; URINE GLUCOSE-RANDOM 3+ (Negative); URINE KETONES 1+ (Negative); URINE PROTEIN TRACE (Negative); URINE UROBILINOGEN 0.2 E.U./dl (0.2-1.0)
[2020-01-20 00:34] LABS: ABSOLUTE BASOPHILS 0.1 thou/uL (0.0-0.2); ABSOLUTE EOSINOPHILS 0.2 thou/uL (0.0-0.7); ABSOLUTE LYMPHOCYTES 2.7 thou/uL (0.8-5.3); ABSOLUTE MONOCYTES 0.8 thou/uL (0.0-1.2); ABSOLUTE NEUTROPHILS 5.3 thou/uL (1.6-8.1); EOSINOPHILS 1.9 %; HEMATOCRIT 42.4 % (37.0-47.0); HEMOGLOBIN 13.5 gm/dL (12.0-15.0); LYMPHOCYTES 30.1 %; MCHC 31.9 g/dL (28.0-37.0); MCV 84.4 fL (80.0-100.0); MONOCYTES 8.4 %; MPV 8.7 fl. (7.2-11.1); NUCLEATED RBCS 0 /100WBC; PLATELET COUNT* 425 thou/uL (150-400); POLYS 58.6 %; RBC 5.02 mil/uL (4.20-5.00)
[2020-01-20 00:48] LABS: URINE LEUKOCYTES-REFLEX 2+ (Negative); URINE NITRITE-REFLEX POSITIVE (Negative)
[2020-01-20 00:52] LABS: CALCIUM 9.2 mg/dL (8.5-10.1); CREATININE 1.4 mg/dL (0.6-1.3); POTASSIUM 4.3 mmol/L (3.5-5.1)
[2020-01-20 00:57] LABS: ALBUMIN 3.2 g/dL (3.4-5.0); TOTAL BILIRUBIN 0.6 mg/dL (<0.1-1.0)
[2020-01-20 01:14] LABS: CASTS None Seen /LPF (None Seen); SQUAMOUS 4-10 Moderate /LPF (0-3); URINE WBC-REFLEX >25 Many /HPF (0-5)
[2020-01-20 01:15] LABS: BACTERIA-REFLEX >30 Many /HPF (None Seen); URINE RBC >20 Many /HPF (0-2)
[2020-01-20 01:16] LABS: CRYSTALS None Seen /LPF (None Seen)
[2020-01-20] MEDS ORDERED: HYDROCODON-ACE1 EAC7 PO (02:17)
[2020-01-20] MEDS ORDERED: AUGMENTIN 500-1 EACH PO (02:17)
[2020-01-20] MEDS ORDERED: PYRIDIUM200 MG PO (02:17)
[2020-01-20] MEDS ORDERED: PERCOCET 5-3251 EACH PO (02:32)
[2020-01-20 02:55] VITALS: BP 119/69
== END 2020-01-20 03:09 | disposition home or self-care (01) ==
LOC: M.ERS 22:25
PROVIDERS: Personal Emergency Response Attendant
DX: N30.10 Interstitial cystitis (chronic) without hematuria (principal); E11.9 Type 2 diabetes mellitus without complications; Z88.1 Allergy status to other antibiotic agents; Z88.2 Allergy status to sulfonamides; Z98.890 Other specified postprocedural states; Z96.642 Presence of left artificial hip joint; Z79.4 Long term (current) use of insulin; Z87.440 Personal history of urinary (tract) infections

== ENCOUNTER 2020-02-11 22:16 | Emergency (ER) | payer MEDICARE, MEDICAID ==
[~2020-02-11] VITALS: Ht 180.3 cm; Wt 113.8 kg
[~2020-02-11 22:16] MED LIST changes: +AUGMENTIN 500-1 EACH PO; +HYDROCODON-ACE1 EAC7 PO; +PYRIDIUM200 MG PO
[2020-02-11] MEDS ORDERED: TEGRETOL XR100 MG PO (22:32)
[2020-02-11] MEDS ORDERED: MS CONTIN 30 MG30 M1 PO (22:33)
[2020-02-11 22:49] LABS: URINE BILIRUBIN NEGATIVE (Negative); URINE BLOOD 3+ (Negative); URINE CLARITY CLOUDY; URINE COLOR YELLOW; URINE GLUCOSE-RANDOM 3+ (Negative); URINE KETONES NEGATIVE (Negative); URINE LEUKOCYTES-REFLEX 2+ (Negative); URINE NITRITE-REFLEX POSITIVE (Negative); URINE PROTEIN 2+ (Negative)
[2020-02-11 22:57] LABS: BACTERIA-REFLEX 1-9 Few /HPF (None Seen); MUCUS None Seen strn/LPF (None Seen); SQUAMOUS 4-10 Moderate /LPF (0-3); URINE RBC >20 Many /HPF (0-2); URINE WBC-REFLEX >25 Many /HPF (0-5); YEAST-REFLEX Present (None Seen)
[2020-02-11 22:58] LABS: CRYSTALS None Seen /LPF (None Seen)
[2020-02-11 23:01] LABS: ABSOLUTE EOSINOPHILS 0.3 thou/uL (0.0-0.7); ABSOLUTE LYMPHOCYTES 2.7 thou/uL (0.8-5.3); ABSOLUTE MONOCYTES 0.7 thou/uL (0.0-1.2); ABSOLUTE NEUTROPHILS 4.3 thou/uL (1.6-8.1); BASOPHILS 0.5 %; EOSINOPHILS 3.3 %; HEMATOCRIT 34.4 % (37.0-47.0); HEMOGLOBIN 10.9 gm/dL (12.0-15.0); LYMPHOCYTES 33.3 %; MCH 27.1 pg (26.0-34.0); MCHC 31.6 g/dL (28.0-37.0); MCV 85.6 fL (80.0-100.0); MONOCYTES 9.3 %; MPV 7.4 fl. (7.2-11.1); NUCLEATED RBCS 0 /100WBC; PLATELET COUNT* 391 thou/uL (150-400); POLYS 53.6 %; RBC 4.02 mil/uL (4.20-5.00); RDW-CV 17.4 % (10.5-14.5)
[2020-02-11 23:08] LABS: CALCIUM 8.6 mg/dL (8.5-10.1); CREATININE 1.5 mg/dL (0.6-1.3); POTASSIUM 4.3 mmol/L (3.5-5.1)
[2020-02-11 23:12] LABS: ALBUMIN 2.6 g/dL (3.4-5.0); TOTAL BILIRUBIN 0.4 mg/dL (<0.1-1.0); TOTAL PROTEIN 6.6 g/dL (6.4-8.2)
[2020-02-12] MEDS ORDERED: AUGMENTIN 500-1 EACH PO (00:18)
[2020-02-12 01:15] VITALS: BP 105/45
== END 2020-02-12 01:15 | disposition home or self-care (01) ==
LOC: M.ERS 22:16
PROVIDERS: Personal Emergency Response Attendant
DX: N39.0 Urinary tract infection, site not specified (principal); E11.65 Type 2 diabetes mellitus with hyperglycemia; Z98.890 Other specified postprocedural states; Z96.642 Presence of left artificial hip joint; Z88.1 Allergy status to other antibiotic agents; Z88.2 Allergy status to sulfonamides; Z88.8 Allergy status to other drugs, medicaments and biological substances

== ENCOUNTER 2020-02-19 00:46 | Emergency (ER) | payer MEDICARE, MEDICAID ==
[~2020-02-19] VITALS: Ht 180.3 cm; Wt 115.2 kg
[~2020-02-19 00:46] MED LIST changes: +MS CONTIN 30 MG30 M1 PO; +TEGRETOL XR100 MG PO
[2020-02-19 01:25] LABS: ABSOLUTE LYMPHOCYTES 1.6 thou/uL (0.8-5.3); ABSOLUTE MONOCYTES 0.7 thou/uL (0.0-1.2); ABSOLUTE NEUTROPHILS 11.1 thou/uL (1.6-8.1); BASOPHILS 0.3 %; EOSINOPHILS 0.1 %; HEMATOCRIT 32.8 % (37.0-47.0); HEMOGLOBIN 10.1 gm/dL (12.0-15.0); LYMPHOCYTES 12.1 %; MCH 26.9 pg (26.0-34.0); MCHC 30.8 g/dL (28.0-37.0); MCV 87.2 fL (80.0-100.0); MONOCYTES 5.4 %; MPV 7.6 fl. (7.2-11.1); NUCLEATED RBCS 0 /100WBC; PLATELET COUNT* 321 thou/uL (150-400); POLYS 82.1 %; RBC 3.76 mil/uL (4.20-5.00); RDW-CV 18.1 % (10.5-14.5); WBC 13.5 thou/uL (4.0-11.0)
[2020-02-19 01:37] LABS: CALCIUM 7.8 mg/dL (8.5-10.1); CREATININE 1.7 mg/dL (0.6-1.3); POTASSIUM 5.3 mmol/L (3.5-5.1)
[2020-02-19 01:42] LABS: ALBUMIN 2.6 g/dL (3.4-5.0); MAGNESIUM 1.6 mg/dL (1.8-2.4); TOTAL BILIRUBIN 0.3 mg/dL (<0.1-1.0); TOTAL PROTEIN 6.2 g/dL (6.4-8.2)
[2020-02-19 02:01] LABS: URINE BILIRUBIN NEGATIVE (Negative); URINE BLOOD 3+ (Negative); URINE CLARITY CLEAR; URINE COLOR DARK YELLOW; URINE GLUCOSE-RANDOM 3+ (Negative); URINE KETONES NEGATIVE (Negative); URINE PROTEIN 2+ (Negative)
[2020-02-19 02:02] LABS: URINE LEUKOCYTES-REFLEX 2+ (Negative); URINE NITRITE-REFLEX POSITIVE (Negative)
[2020-02-19 02:20] LABS: BE -1.1 mmol/L (-2 to +3); PCO2 45.7 mmHg (35.0-45.0)
[2020-02-19 02:24] LABS: BACTERIA-REFLEX >30 Many /HPF (None Seen); MUCUS 4-6 Moderate strn/LPF (None Seen); SQUAMOUS 0-3 Few /LPF (0-3); URINE WBC-REFLEX >25 Many /HPF (0-5); WBC CLUMPS Many (None Seen)
[2020-02-19 02:25] LABS: CASTS None Seen /LPF (None Seen); CRYSTALS None Seen /LPF (None Seen)
[2020-02-19 05:29] LABS: CALCIUM 8.2 mg/dL (8.5-10.1); CREATININE 1.3 mg/dL (0.6-1.3); POTASSIUM 4.7 mmol/L (3.5-5.1)
[2020-02-19 07:10] VITALS: BP 116/60
--- NOTE | 2020-02-19 10:24 | EKG ---
[place] [address] ELECTROCARDIOGRAM REPORT Name: NISHA LAGUNAS Room: [facility]#: [id number] Admission: 02/19/20 Attend Phys: Discharge: 02/19/20 Date of : 53 Date of Service: 02/19/20 010 Report #: [id number] THIS REPORT FOR: //name// [facility] ED Test Date: 2020-02-19 Test Time: 01:01:44 Pat Name: NISHA LAGUNAS Department: Room: Gender: Fur Blender: RACHELE : 1955 Requested By: Ifrah Loredo Order Number: [id number] MD: Bolviar Trinidad Measurements Intervals [place] Rate: 43 P: 22 DE: 191 QRS: -53 QRSD: 127 T: 63 QT: 489 QTc: 414 Interpretive Statements Sinus bradycardia RBBB and LAFB Left ventricular hypertrophy ST elevation, consider early repolarization Compared to ECG 01/03/2020 23:32:35 Left ventricular hypertrophy now present Sinus rhythm no longer present ST (T wave) deviation still present Electronically Signed On 02-19-2020 10:24:30 PIE BAKERY LABORER by Bolivar Trinidad [email or web address] <ELECTRONICALLY SIGNED> By: Bolivar Trinidad MD, FACC 02/19/20 1024 0 0 Bolivar Trinidad MD, FACC /EPI
--- NOTE | 2020-02-19 10:26 | EKG ---
[place] [address] ELECTROCARDIOGRAM REPORT Name: NISHA LAGUNAS Room: [facility]#: [id number] Admission: 02/19/20 Attend Phys: Discharge: 02/19/20 Date of : 53 Date of Service: 02/19/20 0457 Report #: [id number] THIS REPORT FOR: //name// [facility] ED Test Date: 2020-02-19 Test Time: 04:57:06 Pat Name: NISHA LAGUNAS Department: Room: Gender: Avian Keeper: RACHELE : 1955 Requested By: Ifrah Loredo Order Number: [id number] MD: Bolivar Trinidad Measurements Intervals [place] Rate: 61 P: 56 WI: 219 QRS: -50 QRSD: 143 T: -2 QT: 470 QTc: 474 Interpretive Statements Sinus rhythm Borderline prolonged WI interval RBBB and LAFB Compared to ECG 02/19/2020 01:01:44 Sinus bradycardia no longer present Left ventricular hypertrophy no longer present ST (T wave) deviation no longer present Electronically Signed On 02-19-2020 10:25:58 PRINT COLOR MATCHER by Bolivar Trinidad [email or web address] <ELECTRONICALLY SIGNED> By: Bolivar Trinidad MD, FACC 02/19/20 1025 0457 0457 Bolivar Trinidad MD, FACC /EPI
== END 2020-02-19 07:10 | disposition short-term general hospital (02) ==
LOC: M.ERS 00:46
PROVIDERS: Emergency Medicine
DX: N39.0 Urinary tract infection, site not specified (principal); R00.1 Bradycardia, unspecified; N13.30 Unspecified hydronephrosis; Z20.828 Contact with and (suspected) exposure to other viral communicable diseases; E11.9 Type 2 diabetes mellitus without complications; Z88.1 Allergy status to other antibiotic agents; Z88.2 Allergy status to sulfonamides; Z88.8 Allergy status to other drugs, medicaments and biological substances; Z98.890 Other specified postprocedural states; Z96.642 Presence of left artificial hip joint; Z79.4 Long term (current) use of insulin

== ENCOUNTER 2020-07-28 01:09 | Observation (INO) | payer MEDICARE, MEDICAID ==
[~2020-07-28] VITALS: Ht 180.3 cm; Wt 118.4 kg
[2020-07-28 01:13] VITALS: BP 111/57
[2020-07-28] MEDS ORDERED: ACETAMINOPHEN325 M1 PO (01:36)
[2020-07-28] MEDS ORDERED: ASA81BEC PO (01:38)
[2020-07-28 01:54] LABS: ABSOLUTE BASOPHILS 0.1 thou/uL (0.0-0.2); ABSOLUTE EOSINOPHILS 0.3 thou/uL (0.0-0.7); ABSOLUTE LYMPHOCYTES 2.4 thou/uL (0.8-5.3); ABSOLUTE MONOCYTES 0.9 thou/uL (0.0-1.2); ABSOLUTE NEUTROPHILS 4.2 thou/uL (1.6-8.1); BASOPHILS 1.4 %; EOSINOPHILS 3.4 %; HEMATOCRIT 40.4 % (37.0-47.0); HEMOGLOBIN 13.1 gm/dL (12.0-15.0); LYMPHOCYTES 30.3 %; MCH 27.3 pg (26.0-34.0); MCHC 32.5 g/dL (28.0-37.0); MCV 83.9 fL (80.0-100.0); MONOCYTES 11.7 %; MPV 7.8 fl. (7.2-11.1); NUCLEATED RBCS 0 /100WBC; PLATELET COUNT* 261 thou/uL (150-400); POLYS 53.2 %; RBC 4.81 mil/uL (4.20-5.00); RDW-CV 16.7 % (10.5-14.5); WBC 7.9 thou/uL (4.0-11.0)
[2020-07-28] MEDS ORDERED: VOLTAREN GEL 1100 G1 TOP (02:02)
[2020-07-28 02:03] LABS: CALCIUM 8.9 mg/dL (8.5-10.1); CREATININE 1.2 mg/dL (0.6-1.3); POTASSIUM 4.8 mmol/L (3.5-5.1)
[2020-07-28] MEDS ORDERED: NEURONTIN 400M400 M2 PO (02:03)
[2020-07-28] MEDS ORDERED: GABAPENTIN600 M1 PO (02:04)
[2020-07-28] MEDS ORDERED: GLYBURIDE 5 MG T5 M1 PO (02:04)
[2020-07-28] MEDS ORDERED: DILAUDID1 MG/1 M1 PO (02:06)
[2020-07-28] MEDS ORDERED: IBUPROFEN 600600 M1 PO (02:10)
[2020-07-28] MEDS ORDERED: MELATONIN3 M1 PO (02:10)
[2020-07-28] MEDS ORDERED: ROPINIROLE HCL4 MG PO (02:11)
[2020-07-28] MEDS ORDERED: OMEPRAZOLE 20 M20 M1 PO (02:11)
[2020-07-28] MEDS ORDERED: VENLAFAXINE HC150 MG PO (02:12)
[2020-07-28] MEDS ORDERED: GLIPIZIDE 10 MG10 MG PO (02:14)
[2020-07-28 03:20] VITALS: BP 132/67
[2020-07-28 04:00] VITALS: BP 102/54
[2020-07-28 07:46] VITALS: BP 97/52
[2020-07-28 16:00] VITALS: BP 96/52
[2020-07-28 20:00] VITALS: BP 124/47
[2020-07-29 08:03] VITALS: BP 148/60
[2020-07-29 16:00] VITALS: BP 138/66
[2020-07-29 19:45] VITALS: BP 112/52
[2020-07-30 00:19] VITALS: BP 121/58
[2020-07-30 07:30] VITALS: BP 130/61
[2020-07-30] MEDS ORDERED: AMITRIPTYLINE H25 M2 PO (09:07)
[2020-07-30] MEDS ORDERED: DEPAKOTE 250MG250 M1 PO (09:07)
[2020-07-30] MEDS ORDERED: LIDOPATCH1 EACH TOP (09:07)
[2020-07-30] MEDS ORDERED: NEURONTIN600 MG PO (09:07)
[2020-07-30] MEDS ORDERED: PERCOCET PO (09:07)
[2020-07-30] MEDS ORDERED: ZANAFLEX4 MG PO (09:07)
[2020-07-30 09:23] VITALS: BP 130/61
== END 2020-07-30 13:10 ==
LOC: M.ERS 01:09 → M.ORTHSURG 02:02 → M.TBA-ER 02:02 → M.ORTHSURG 03:58
PROVIDERS: Emergency Medicine; ADMIT Family Medicine; ATTEND Family Medicine
DX: M79.604 Pain in right leg (principal); Z20.822 Contact with and (suspected) exposure to COVID-19; E11.9 Type 2 diabetes mellitus without complications; E03.9 Hypothyroidism, unspecified; K21.9 Gastro-esophageal reflux disease without esophagitis; G89.29 Other chronic pain; Z88.2 Allergy status to sulfonamides; Z91.048 Other nonmedicinal substance allergy status; Z79.899 Other long term (current) drug therapy; Z79.84 Long term (current) use of oral hypoglycemic drugs; Z98.890 Other specified postprocedural states; Z87.440 Personal history of urinary (tract) infections